=== PATIENT | female | born 1940 | race Caucasian/White ===

== ENCOUNTER 2017-06-28 19:10 | Inpatient (IN) ==
[2017-06-28] MEDS ORDERED: ONDANSETRON 4 MG/2 ML VIAL IV STA (21:28)
[2017-06-28] MEDS ORDERED: MORPHINE 4 MG/1 ML VIAL IV STA (21:28)
[2017-06-28] MEDS ORDERED: ONDANSETRON 4 MG/2 ML VIAL ONE (22:04)
[2017-06-28] MEDS ORDERED: MORPHINE 4 MG/1 ML VIAL ONE (22:04)
[2017-06-28 22:40] LABS: Basophils % 0.3 % (0.0-0.8); Eosinophils # 0.1 10*3/uL (0.0-0.87); Eosinophils % 0.8 % (0.00-10.9); Hematocrit 40.9 VOL% (35.7-47.0); Hemoglobin 14.1 GM/DL (12.0-16.0); Immature Granulocytes % 0.5 %; Immature Granulocytes Absolute 0.07 #; Lymphocytes # 2.1 10*3/uL (1.4-4.0); Lymphocytes % 15.7 % (21.3-54.2); Mean Corpuscular HGB Conc 34.5 GM/DL (32-36); Mean Corpuscular Hemoglobin 32 PG (27-34); Mean Platelet Volume 12.5 FL (9.6-12.0); Monocytes # 0.6 10*3/uL (0.11-0.8); Monocytes % 4.6 % (1.7-12.7); Neutrophils # 10.2 10*3/uL (1.4-7.4); Neutrophils % 78.1 % (38.7-73.9); Platelet Count 110 T/CUMM (130-400); Red Cell Distribution Width 12.9 % (9.3-17.3); White Blood Count 13.1 T/CUMM (4-12)
[2017-06-28 22:46] LABS: Apearance,Urine CLEAR (Clear); Bacteria,Urine Occasional /HPF (Few); Bilirubin,Urine Negative (Negative); Blood, Urine Small mg/dL (Negative); Glucose,Urine (UA) 50 mg/dL (Negative); Ketones,Urine Negative (Negative); Nitrite,Urine Negative (Negative); Protein,Urine 30 MG/DL; RBC,Urine 2 /HPF (0-4); Urine Color Yellow (Yellow); Urine Urobilinogen < 2.0 EU/DL (0.2-1.0); WBC,Urine <1 /HPF (0-6)
[2017-06-28 22:49] LABS: PT Patient Result 10.7 SECS
[2017-06-28 23:01] LABS: Albumin 4.7 G/DL (3.4-5.0); Bilirubin,Total 0.5 MG/DL (0.2-1.0); Calcium 9.5 MG/DL (8.5-10.1); Osmolality,Calculated 274.4 MOS/KG (273-304); Potassium 4.3 MMOL/L (3.5-5.1); Total Protein 8.2 G/DL (6.4-8.3)
[2017-06-29] MEDS ORDERED: MORPHINE 4 MG/1 ML VIAL IV PRN ×2 (00:12→11:42)
[2017-06-29] MEDS ORDERED: MORPHINE 4 MG/1 ML VIAL ONE (00:16)
[2017-06-29] MEDS ORDERED: MORPHINE 4 MG/1 ML VIAL IV STA ×2 (00:30→01:33)
[2017-06-29] MEDS: DEXTROSE 5% NACL 0.9% 1,000 ML IV SCH ×2 (02:12→08:30)
[2017-06-29] MEDS: ONDANSETRON 4 MG/2 ML VIAL IV PRN ×2 (05:05→21:25)
[2017-06-29] MEDS ORDERED: PANTOPRAZOLE 40 MG TABLET PO SCH (09:00)
[2017-06-29] MEDS: DOCUSATE SODIUM 100 MG CAPSULE PO SCH ×2 (09:00→21:23)
[2017-06-29] MEDS ORDERED: ceFAZolin 1,000 MG in SYRINGE 1 EACH IV ONE (10:00)
[2017-06-29] MEDS ORDERED: MAGNESIUM HYDROXIDE SUSP 30 ML UDCUP PO PRN (11:22)
[2017-06-29] MEDS ORDERED: PROMETHAZINE 25 MG/1 ML VIAL IM PRN (11:22)
[2017-06-29] MEDS ORDERED: BISACODYL 10 MG SUPP RECTAL PRN (11:22)
[2017-06-29] MEDS ORDERED: LACTULOSE 20 GM/30 ML UDCUP PO PRN (11:22)
[2017-06-29] MEDS ORDERED: PROPOFOL 200 MG/20 ML VIAL IV ONE (12:05)
[2017-06-29] MEDS ORDERED: fentaNYL 100 MCG/2 ML VIAL ONE (12:05)
[2017-06-29] MEDS ORDERED: SEVOFLURANE 1 UNIT/15 MINUTE INH ONE (12:05)
[2017-06-29] MEDS ORDERED: ONDANSETRON 4 MG/2 ML VIAL ONE (12:06)
[2017-06-29] MEDS ORDERED: ONDANSETRON 4 MG/2 ML VIAL IV PRN (12:38)
[2017-06-29] MEDS ORDERED: MEPERIDINE 25 MG/1 ML VIAL IV PRN (12:38)
[2017-06-29] MEDS ORDERED: HYDROmorphone 2 MG/1 ML VIAL IV PRN (12:38)
[2017-06-29] MEDS: MORPHINE 4 MG/1 ML VIAL IV PRN ×2 (14:17→21:21)
[2017-06-29] MEDS: LISINOPRIL 10 MG TABLET PO SCH (18:42)
[2017-06-29] MEDS: ceFAZolin 1,000 MG in SYRINGE 1 EACH IV SCH (18:42)
[2017-06-29] MEDS: CARVEDILOL 6.25 MG TABLET PO SCH (18:43)
[2017-06-29] MEDS: SIMVASTATIN 40 MG TABLET PO SCH (21:23)
[2017-06-29] MEDS: ASPIRIN EC 81 MG TABLET PO SCH (21:23)
[2017-06-29] MEDS: INSULIN GLARGINE 100 UNIT/ML SUBCUT SCH (21:23)
[2017-06-30] MEDS: ceFAZolin 1,000 MG in SYRINGE 1 EACH IV SCH ×3 (03:41→17:06)
[2017-06-30] MEDS: LACTATED RINGERS 1,000 ML IV SCH ×2 (03:43→10:28)
[2017-06-30] MEDS: DEXTROSE 5% NACL 0.9% 1,000 ML IV SCH ×4 (03:43→21:07)
[2017-06-30] MEDS: MORPHINE 4 MG/1 ML VIAL IV PRN ×4 (04:48→21:07)
[2017-06-30] MEDS: ONDANSETRON 4 MG/2 ML VIAL IV PRN (04:48)
[2017-06-30] MEDS: LEVOTHYROXINE 50 MCG TABLET PO SCH (06:23)
[2017-06-30 06:29] LABS: Basophils % 0.1 % (0.0-0.8); Eosinophils # 0.2 10*3/uL (0.0-0.87); Eosinophils % 2.2 % (0.00-10.9); Hemoglobin 11.4 GM/DL (12.0-16.0); Immature Granulocytes % 0.4 %; Immature Granulocytes Absolute 0.04 #; Lymphocytes # 2.2 10*3/uL (1.4-4.0); Lymphocytes % 24.9 % (21.3-54.2); Mean Corpuscular HGB Conc 34.5 GM/DL (32-36); Mean Corpuscular Hemoglobin 32 PG (27-34); Mean Corpuscular Volume 92.2 FL (87-102); Mean Platelet Volume 12.4 FL (9.6-12.0); Monocytes # 0.9 10*3/uL (0.11-0.8); Monocytes % 9.6 % (1.7-12.7); Neutrophils # 5.6 10*3/uL (1.4-7.4); Neutrophils % 62.8 % (38.7-73.9); Platelet Count 83 T/CUMM (130-400); Red Blood Count 3.58 MC/CUMM (3.8-5.5); Red Cell Distribution Width 12.7 % (9.3-17.3)
[2017-06-30 07:05] LABS: Eosinophils 2 % (0-10); Giant Platelets Few; Hypochromasia 1+; Lymphocytes 33 % (20-55); Platelet Estimate Decreased; Segmented Neutrophils 55 % (50-85); Total Cells Counted 100
[2017-06-30] MEDS ORDERED: GLUCAGON 1 MG VIAL IM PRN ×2 (08:13→08:15)
[2017-06-30] MEDS ORDERED: DEXTROSE 50% 25 GM/50 ML VIAL IV PRN ×2 (08:13→08:15)
[2017-06-30] MEDS: CARVEDILOL 6.25 MG TABLET PO SCH ×2 (09:35→17:05)
[2017-06-30] MEDS: FUROSEMIDE 20 MG TABLET PO SCH (09:37)
[2017-06-30] MEDS: PANTOPRAZOLE 40 MG TABLET PO SCH (09:37)
[2017-06-30] MEDS: DOCUSATE SODIUM 100 MG CAPSULE PO SCH ×2 (10:28→21:05)
[2017-06-30] MEDS: INSULIN REGULAR 100 UNIT/ML SUBCUT SCH ×3 (12:16→21:06)
[2017-06-30] MEDS ORDERED: TUBERCULIN SKIN TEST 0.1 ML SYRINGE INTRADERM ONE (15:33)
[2017-06-30] MEDS: LISINOPRIL 10 MG TABLET PO SCH (18:25)
[2017-06-30] MEDS: ASPIRIN EC 81 MG TABLET PO SCH (21:05)
[2017-06-30] MEDS: SIMVASTATIN 40 MG TABLET PO SCH (21:05)
[2017-06-30] MEDS: INSULIN GLARGINE 100 UNIT/ML SUBCUT SCH (21:06)
[2017-07-01] MEDS: ceFAZolin 1,000 MG in SYRINGE 1 EACH IV SCH ×3 (01:11→18:30)
[2017-07-01] MEDS: DEXTROSE 5% NACL 0.9% 1,000 ML IV SCH ×2 (04:10→15:55)
[2017-07-01] MEDS: MORPHINE 4 MG/1 ML VIAL IV PRN (04:16)
[2017-07-01 04:24] LABS: Basophils % 0.3 % (0.0-0.8); Eosinophils # 0.3 10*3/uL (0.0-0.87); Eosinophils % 2.9 % (0.00-10.9); Hematocrit 31.2 VOL% (35.7-47.0); Hemoglobin 10.9 GM/DL (12.0-16.0); Immature Granulocytes % 0.3 %; Immature Granulocytes Absolute 0.03 #; Lymphocytes # 2.8 10*3/uL (1.4-4.0); Lymphocytes % 30.4 % (21.3-54.2); Mean Corpuscular HGB Conc 34.9 GM/DL (32-36); Mean Corpuscular Hemoglobin 32 PG (27-34); Mean Corpuscular Volume 92.3 FL (87-102); Mean Platelet Volume 13.1 FL (9.6-12.0); Monocytes # 1.1 10*3/uL (0.11-0.8); Monocytes % 11.4 % (1.7-12.7); Neutrophils # 5.1 10*3/uL (1.4-7.4); Neutrophils % 54.7 % (38.7-73.9); Platelet Count 88 T/CUMM (130-400); Red Blood Count 3.38 MC/CUMM (3.8-5.5); Red Cell Distribution Width 12.4 % (9.3-17.3); White Blood Count 9.3 T/CUMM (4-12)
[2017-07-01 05:23] LABS: Giant Platelets Few; Hypochromasia 1+; Ovalocytes Slight; Platelet Estimate Decreased
[2017-07-01] MEDS: LEVOTHYROXINE 50 MCG TABLET PO SCH (06:13)
[2017-07-01] MEDS: LACTATED RINGERS 1,000 ML IV SCH (08:20)
[2017-07-01] MEDS: DOCUSATE SODIUM 100 MG CAPSULE PO SCH ×2 (10:01→20:44)
[2017-07-01] MEDS: INSULIN REGULAR 100 UNIT/ML SUBCUT SCH ×4 (10:01→20:46)
[2017-07-01] MEDS: CARVEDILOL 6.25 MG TABLET PO SCH ×2 (10:01→18:30)
[2017-07-01] MEDS: PANTOPRAZOLE 40 MG TABLET PO SCH (10:02)
[2017-07-01] MEDS: FUROSEMIDE 20 MG TABLET PO SCH (10:02)
[2017-07-01 16:04] LABS: Basophils % 0.2 % (0.0-0.8); Eosinophils # 0.1 10*3/uL (0.0-0.87); Hematocrit 31.4 VOL% (35.7-47.0); Hemoglobin 11.2 GM/DL (12.0-16.0); Immature Granulocytes % 0.6 %; Immature Granulocytes Absolute 0.06 #; Lymphocytes # 1.7 10*3/uL (1.4-4.0); Lymphocytes % 17.5 % (21.3-54.2); Mean Corpuscular HGB Conc 35.7 GM/DL (32-36); Mean Corpuscular Hemoglobin 33 PG (27-34); Mean Corpuscular Volume 91.5 FL (87-102); Mean Platelet Volume 11.8 FL (9.6-12.0); Monocytes % 10.4 % (1.7-12.7); Neutrophils % 70.3 % (38.7-73.9); Platelet Count 98 T/CUMM (130-400); Red Blood Count 3.43 MC/CUMM (3.8-5.5); Red Cell Distribution Width 12.4 % (9.3-17.3)
[2017-07-01 16:29] LABS: Albumin 3.2 G/DL (3.4-5.0); Bilirubin,Total 0.9 MG/DL (0.2-1.0); Calcium 8.4 MG/DL (8.5-10.1); Osmolality,Calculated 261.7 MOS/KG (273-304); Potassium 3.6 MMOL/L (3.5-5.1); Total Protein 6.4 G/DL (6.4-8.3)
[2017-07-01 16:59] LABS: Platelet Estimate Decreased
[2017-07-01 18:23] LABS: Apearance,Urine Clear (Clear); Urine Color Yellow (Yellow)
[2017-07-01 18:24] LABS: Bilirubin,Urine Negative (Negative); Blood, Urine Negative (Negative); Glucose,Urine (UA) 150 mg/dL (Negative); Ketones,Urine Negative (Negative); Nitrite,Urine Negative (Negative); Protein,Urine 30 MG/DL; Urine Specific Gravity 1.015 (1.001-1.035); Urine Urobilinogen 0.2 EU/DL (0.2-1.0)
[2017-07-01] MEDS: LISINOPRIL 10 MG TABLET PO SCH (18:31)
[2017-07-01] MEDS: ASPIRIN EC 81 MG TABLET PO SCH (20:45)
[2017-07-01] MEDS: SIMVASTATIN 40 MG TABLET PO SCH (20:45)
[2017-07-01] MEDS: INSULIN GLARGINE 100 UNIT/ML SUBCUT SCH (20:46)
[2017-07-01] MEDS ORDERED: MAGNESIUM SULF RIDER 2 GM in PREMIX 1 EACH IV ONE (22:30)
[2017-07-01] MEDS ORDERED: FUROSEMIDE 20 MG/2 ML VIAL IV ONE (22:30)
[2017-07-01] MEDS: SODIUM CHLORIDE 0.9% 1,000 ML IV SCH (22:49)
[2017-07-02] MEDS: ceFAZolin 1,000 MG in SYRINGE 1 EACH IV SCH ×3 (02:15→18:08)
[2017-07-02] MEDS: LEVOTHYROXINE 50 MCG TABLET PO SCH (06:17)
[2017-07-02 06:25] LABS: Calcium 8.2 MG/DL (8.5-10.1); Osmolality,Calculated 265.5 MOS/KG (273-304); Potassium 3.5 MMOL/L (3.5-5.1)
[2017-07-02] MEDS: INSULIN REGULAR 100 UNIT/ML SUBCUT SCH ×4 (08:56→20:28)
[2017-07-02] MEDS ORDERED: FUROSEMIDE 20 MG/2 ML VIAL IV SCH (09:00)
[2017-07-02] MEDS: ACETAMINOPHEN 325 MG TABLET PO PRN ×2 (10:27→20:26)
[2017-07-02] MEDS: PANTOPRAZOLE 40 MG TABLET PO SCH (10:28)
[2017-07-02] MEDS: CARVEDILOL 6.25 MG TABLET PO SCH ×2 (10:28→16:38)
[2017-07-02] MEDS: FUROSEMIDE 20 MG TABLET PO SCH (10:28)
[2017-07-02] MEDS: DOCUSATE SODIUM 100 MG CAPSULE PO SCH ×2 (10:28→21:38)
[2017-07-02] MEDS: SODIUM CHLORIDE 0.9% 1,000 ML IV SCH (13:45)
[2017-07-02] MEDS ORDERED: POTASSIUM CHLORIDE 10 MEQ TABLET PO ONE (14:21)
[2017-07-02] MEDS: LISINOPRIL 10 MG TABLET PO SCH (18:08)
[2017-07-02] MEDS: MAGNESIUM HYDROXIDE SUSP 30 ML UDCUP PO SCH ×2 (18:08→20:27)
[2017-07-02] MEDS: SIMVASTATIN 40 MG TABLET PO SCH (20:27)
[2017-07-02] MEDS: ASPIRIN EC 81 MG TABLET PO SCH (20:27)
[2017-07-02] MEDS: INSULIN GLARGINE 100 UNIT/ML SUBCUT SCH (20:28)
[2017-07-03] MEDS: ceFAZolin 1,000 MG in SYRINGE 1 EACH IV SCH ×2 (02:04→10:25)
[2017-07-03] MEDS: SODIUM CHLORIDE 0.9% 1,000 ML IV SCH (02:10)
[2017-07-03] MEDS: ACETAMINOPHEN 325 MG TABLET PO PRN ×2 (02:10→08:35)
[2017-07-03] MEDS ORDERED: POTASSIUM CHLORIDE 20 MEQ TABLET PO PRN (02:43)
[2017-07-03 05:56] LABS: Calcium 7.8 MG/DL (8.5-10.1); Osmolality,Calculated 269.1 MOS/KG (273-304)
[2017-07-03] MEDS: LEVOTHYROXINE 50 MCG TABLET PO SCH (06:01)
[2017-07-03] MEDS: INSULIN REGULAR 100 UNIT/ML SUBCUT SCH ×2 (08:17→11:41)
[2017-07-03] MEDS: CARVEDILOL 6.25 MG TABLET PO SCH (08:35)
[2017-07-03] MEDS: PANTOPRAZOLE 40 MG TABLET PO SCH (08:35)
[2017-07-03] MEDS: FUROSEMIDE 20 MG TABLET PO SCH (08:35)
[2017-07-03] MEDS: DOCUSATE SODIUM 100 MG CAPSULE PO SCH (08:35)
[2017-07-03] MEDS: MAGNESIUM HYDROXIDE SUSP 30 ML UDCUP PO SCH (08:43)
[2017-07-03] MEDS ORDERED: POTASSIUM CHLORIDE 20 MEQ TABLET PO SCH (09:00)
[2017-07-03 11:19] VITALS: BP 116/60
== END 2017-07-03 13:35 | DRG 481 ==
LOC: N.ED 19:10 → N.3E 06-29 00:10 → N.EDINP 06-29 00:12 → N.3E 06-29 00:54
PROVIDERS: ADMIT Family Medicine; ATTEND Family Medicine

== ENCOUNTER 2018-06-30 08:22 | Inpatient (IN) ==
[2018-06-30 09:55] LABS: Basophils # 0.1 10*3/uL (0.0-0.2); Basophils % 0.6 % (0.0-0.8); Eosinophils # 0.3 10*3/uL (0.0-0.87); Eosinophils % 3.1 % (0.00-10.9); Hematocrit 43.2 VOL% (35.7-47.0); Hemoglobin 14.2 GM/DL (12.0-16.0); Immature Granulocytes % 0.6 %; Immature Granulocytes Absolute 0.05 #; Lymphocytes % 22.3 % (21.3-54.2); Mean Corpuscular HGB Conc 32.9 GM/DL (32-36); Mean Corpuscular Volume 96.2 FL (87-102); Monocytes % 6.5 % (1.7-12.7); Neutrophils % 66.9 % (38.7-73.9); Platelet Count 131 T/CUMM (130-400); Red Blood Count 4.49 MC/CUMM (3.8-5.5); Red Cell Distribution Width 12.8 % (9.3-17.3); White Blood Count 9.1 T/CUMM (4-12)
[2018-06-30 10:17] LABS: Calcium 9.1 MG/DL (8.5-10.1); Osmolality,Calculated 280.7 MOS/KG (273-304)
[2018-06-30 10:38] LABS: Apearance,Urine CLEAR (Clear); Bilirubin,Urine Negative (Negative); Blood, Urine Negative (Negative); Glucose,Urine (UA) Negative (Negative); Ketones,Urine 5 mg/dL (Negative); Nitrite,Urine Negative (Negative); Protein,Urine 30 MG/DL; RBC,Urine 1 /HPF (0-4); Urine Color Yellow (Yellow); Urine Specific Gravity 1.013 (1.001-1.035); Urine Urobilinogen < 2.0 EU/DL (0.2-1.0); WBC,Urine 1 /HPF (0-6)
[2018-06-30] MEDS ORDERED: ONDANSETRON 4 MG/2 ML VIAL IV PRN (11:10)
[2018-06-30] MEDS ORDERED: ALUMINUM/MAGNES/SIMETH MAX STR 30 ML UDCUP PO PRN (11:10)
[2018-06-30] MEDS ORDERED: BISACODYL 5 MG TABLET PO PRN (11:10)
[2018-06-30] MEDS ORDERED: HYDROmorphone 2 MG/1 ML VIAL IV PRN ×2 (11:10→12:51)
[2018-06-30] MEDS ORDERED: MAGNESIUM HYDROXIDE SUSP 30 ML UDCUP PO PRN (11:10)
[2018-06-30] MEDS ORDERED: GLUCAGON 1 MG VIAL IM PRN (11:17)
[2018-06-30] MEDS ORDERED: DEXTROSE 50% 25 GM/50 ML SYRINGE IV PRN (11:17)
[2018-06-30] MEDS: SODIUM CHLORIDE 0.9% 1,000 ML IV SCH (12:44)
[2018-06-30] MEDS: INSULIN LISPRO 100 UNIT/ML SUBCUT SCH ×3 (13:47→20:41)
[2018-06-30] MEDS ORDERED: ceFAZolin 2,000 MG in PREMIX 1 EACH IV ONE (14:00)
[2018-06-30] MEDS: CARVEDILOL 6.25 MG TABLET PO SCH (17:25)
[2018-06-30 18:40] LABS: Basophils % 0.2 % (0.0-0.8); Eosinophils % 0.3 % (0.00-10.9); Hematocrit 39.9 VOL% (35.7-47.0); Hemoglobin 12.7 GM/DL (12.0-16.0); Immature Granulocytes % 0.5 %; Immature Granulocytes Absolute 0.05 #; Lymphocytes # 1.8 10*3/uL (1.4-4.0); Lymphocytes % 17.7 % (21.3-54.2); Mean Corpuscular HGB Conc 31.8 GM/DL (32-36); Mean Corpuscular Volume 98.3 FL (87-102); Mean Platelet Volume 11.7 FL (9.6-12.0); Monocytes % 5.3 % (1.7-12.7); Platelet Count 121 T/CUMM (130-400); Red Blood Count 4.06 MC/CUMM (3.8-5.5); Red Cell Distribution Width 12.7 % (9.3-17.3); White Blood Count 9.9 T/CUMM (4-12)
[2018-06-30] MEDS: INSULIN GLARGINE 100 UNIT/ML SUBCUT SCH (20:40)
[2018-06-30] MEDS ORDERED: PROPOFOL 200 MG/20 ML VIAL IV ONE (21:15)
[2018-06-30] MEDS ORDERED: SEVOFLURANE 1 UNIT/15 MINUTE INH ONE (21:15)
[2018-06-30] MEDS ORDERED: DEXAMETHASONE 4 MG/1 ML VIAL ONE (21:16)
[2018-06-30] MEDS ORDERED: fentaNYL 100 MCG/2 ML VIAL ONE (21:16)
[2018-06-30] MEDS ORDERED: ePHEDrine 50 MG/ML AMP ONE (21:16)
[2018-06-30] MEDS ORDERED: ACETAMINOPHEN 1,000 MG/100 ML VIAL IV ONE (21:16)
[2018-06-30] MEDS ORDERED: ONDANSETRON 4 MG/2 ML VIAL ONE (21:16)
[2018-07-01] MEDS: SODIUM CHLORIDE 0.9% 1,000 ML IV SCH ×3 (00:53→21:01)
[2018-07-01] MEDS: SIMVASTATIN 40 MG TABLET PO SCH ×2 (00:54→20:48)
[2018-07-01] MEDS: LISINOPRIL 10 MG TABLET PO SCH ×2 (00:54→18:16)
[2018-07-01 05:01] LABS: Basophils % 0.1 % (0.0-0.8); Hematocrit 33.6 VOL% (35.7-47.0); Hemoglobin 11.1 GM/DL (12.0-16.0); Immature Granulocytes % 0.4 %; Immature Granulocytes Absolute 0.04 #; Lymphocytes # 1.3 10*3/uL (1.4-4.0); Lymphocytes % 11.8 % (21.3-54.2); Mean Corpuscular Volume 96.8 FL (87-102); Mean Platelet Volume 12.4 FL (9.6-12.0); Monocytes % 4.9 % (1.7-12.7); Neutrophils % 82.8 % (38.7-73.9); Platelet Count 99 T/CUMM (130-400); Red Blood Count 3.47 MC/CUMM (3.8-5.5); Red Cell Distribution Width 12.7 % (9.3-17.3); White Blood Count 10.6 T/CUMM (4-12)
[2018-07-01 06:03] LABS: Anisocytosis Slight; Platelet Estimate Decreased
[2018-07-01] MEDS: LEVOTHYROXINE 50 MCG TABLET PO SCH (06:47)
[2018-07-01] MEDS: POTASSIUM CHLORIDE 20 MEQ TABLET PO SCH (09:14)
[2018-07-01] MEDS: CARVEDILOL 6.25 MG TABLET PO SCH ×2 (09:14→16:32)
[2018-07-01] MEDS: INSULIN LISPRO 100 UNIT/ML SUBCUT SCH ×4 (09:15→20:52)
[2018-07-01] MEDS: ENOXAPARIN 30 MG/0.3 ML SYRINGE SUBCUT SCH (09:18)
[2018-07-01] MEDS: INSULIN GLARGINE 100 UNIT/ML SUBCUT SCH (20:48)
[2018-07-02] MEDS: LEVOTHYROXINE 50 MCG TABLET PO SCH (06:06)
[2018-07-02] MEDS: CARVEDILOL 6.25 MG TABLET PO SCH ×2 (09:49→16:57)
[2018-07-02] MEDS: INSULIN LISPRO 100 UNIT/ML SUBCUT SCH ×4 (09:50→21:59)
[2018-07-02] MEDS: ENOXAPARIN 30 MG/0.3 ML SYRINGE SUBCUT SCH (09:50)
[2018-07-02] MEDS: POTASSIUM CHLORIDE 20 MEQ TABLET PO SCH (09:58)
[2018-07-02] MEDS: SODIUM CHLORIDE 0.9% 1,000 ML IV SCH ×3 (10:01→23:21)
[2018-07-02] MEDS: LISINOPRIL 10 MG TABLET PO SCH (18:34)
[2018-07-02] MEDS ORDERED: MELATONIN 3 MG TABLET PO SCH (21:00)
[2018-07-02] MEDS: INSULIN GLARGINE 100 UNIT/ML SUBCUT SCH (21:59)
[2018-07-02] MEDS: SIMVASTATIN 40 MG TABLET PO SCH (22:00)
[2018-07-03 05:28] LABS: Basophils % 0.3 % (0.0-0.8); Eosinophils # 0.3 10*3/uL (0.0-0.87); Hematocrit 28.4 VOL% (35.7-47.0); Hemoglobin 8.9 GM/DL (12.0-16.0); Immature Granulocytes % 0.4 %; Immature Granulocytes Absolute 0.04 #; Lymphocytes # 3.6 10*3/uL (1.4-4.0); Lymphocytes % 34.2 % (21.3-54.2); Mean Corpuscular HGB Conc 31.3 GM/DL (32-36); Mean Platelet Volume 12.6 FL (9.6-12.0); Monocytes % 9.9 % (1.7-12.7); Neutrophils % 52.2 % (38.7-73.9); Platelet Count 92 T/CUMM (130-400); Red Blood Count 2.84 MC/CUMM (3.8-5.5); White Blood Count 10.5 T/CUMM (4-12)
[2018-07-03] MEDS: LEVOTHYROXINE 50 MCG TABLET PO SCH (06:05)
[2018-07-03 06:06] LABS: Anisocytosis 1+; Platelet Estimate Decreased
[2018-07-03] MEDS: INSULIN LISPRO 100 UNIT/ML SUBCUT SCH ×2 (07:39→12:23)
[2018-07-03] MEDS: POTASSIUM CHLORIDE 20 MEQ TABLET PO SCH (08:45)
[2018-07-03] MEDS: ENOXAPARIN 30 MG/0.3 ML SYRINGE SUBCUT SCH (08:46)
[2018-07-03] MEDS: CARVEDILOL 6.25 MG TABLET PO SCH (08:46)
[2018-07-03] MEDS ORDERED: ESCITALOPRAM 10 MG TABLET PO SCH (09:00)
[2018-07-03 11:57] VITALS: BP 173/76
== END 2018-07-03 13:40 | DRG 481 ==
LOC: EDUNIT# → N.ED 08:22 → N.EDINP 11:10 → N.3E 13:05
PROVIDERS: ADMIT Family Medicine; ATTEND Family Medicine

== ENCOUNTER 2018-09-14 21:02 | Observation (INO) ==
[2018-09-14] MEDS ORDERED: ACETAMINOPHEN 500 MG TABLET PO STA (21:32)
[2018-09-14 21:52] LABS: Basophils % 0.3 % (0.0-0.8); Eosinophils # 0.2 10*3/uL (0.0-0.87); Eosinophils % 3.2 % (0.00-10.9); Hematocrit 38.1 VOL% (35.7-47.0); Hemoglobin 11.9 GM/DL (12.0-16.0); Immature Granulocytes % 0.3 %; Immature Granulocytes Absolute 0.02 #; Lymphocytes # 3.2 10*3/uL (1.4-4.0); Lymphocytes % 46.9 % (21.3-54.2); Mean Corpuscular HGB Conc 31.2 GM/DL (32-36); Mean Corpuscular Volume 96.5 FL (87-102); Mean Platelet Volume 12.2 FL (9.6-12.0); Monocytes % 9.4 % (1.7-12.7); Neutrophils % 39.9 % (38.7-73.9); Platelet Count 124 T/CUMM (130-400); Red Blood Count 3.95 MC/CUMM (3.8-5.5); Red Cell Distribution Width 13.5 % (9.3-17.3); White Blood Count 6.9 T/CUMM (4-12)
[2018-09-14 22:11] LABS: Alanine Aminotransferase 26 U/L (13-56); Albumin 3.3 G/DL (3.4-5.0); Alkaline Phosphatase 78 U/L (45-117); Aspartate Amino Transferase 19 U/L (0-37); Bilirubin,Total < 0.39 MG/DL (0.2-1.0); Blood Urea Nitrogen 33 MG/DL (7-18); Calcium 8.2 MG/DL (8.5-10.1); Glucose 228 MG/DL (74-106); Osmolality,Calculated 290.5 MOS/KG (273-304)
[2018-09-14 23:20] LABS: Apearance,Urine CLEAR (Clear); Bacteria,Urine Many /HPF (Few); Bilirubin,Urine Negative (Negative); Blood, Urine Negative (Negative); Glucose,Urine (UA) >=500 mg/dL (Negative); Hyaline Casts,Urine 3 /LPF (0-3); Ketones,Urine Negative (Negative); Mucus,Urine Occasional /LPF (Occasional); Nitrite,Urine Positive (Negative); Protein,Urine Negative; Squamous Epithelial Cell,Urine Occasional /HPF (0-10); Urine Color Yellow (Yellow); Urine Specific Gravity 1.017 (1.001-1.035); Urine Urobilinogen < 2.0 EU/DL (0.2-1.0); WBC,Urine 66 /HPF (0-6)
[2018-09-15] MEDS ORDERED: cefTRIAXone 1,000 MG in SODIUM CHLORIDE 0.9% 100 ML IV STA (00:01)
[2018-09-15] MEDS ORDERED: ACETAMINOPHEN 325 MG TABLET PO PRN (00:50)
[2018-09-15] MEDS ORDERED: ONDANSETRON 4 MG/2 ML VIAL IV PRN (00:50)
[2018-09-15] MEDS ORDERED: ALUMINUM/MAGNES/SIMETH MAX STR 30 ML UDCUP PO PRN (09:55)
[2018-09-15] MEDS ORDERED: BISACODYL 5 MG TABLET PO PRN (09:55)
[2018-09-15] MEDS: cefTRIAXone 1,000 MG in SYRINGE 1 EACH IV SCH (10:32)
[2018-09-15] MEDS: ESCITALOPRAM 10 MG TABLET PO SCH (10:32)
[2018-09-15] MEDS: LISINOPRIL 10 MG TABLET PO SCH (17:59)
[2018-09-15] MEDS: MELATONIN 3 MG TABLET PO SCH (20:58)
[2018-09-15] MEDS: OLANZapine 2.5 MG TABLET PO SCH (20:58)
[2018-09-15] MEDS: SIMVASTATIN 40 MG TABLET PO SCH (20:58)
[2018-09-15] MEDS: CARVEDILOL 6.25 MG TABLET PO SCH (20:58)
[2018-09-15] MEDS: INSULIN REGULAR 100 UNIT/ML SUBCUT SCH (21:34)
[2018-09-15] MEDS: INSULIN GLARGINE 100 UNIT/ML SUBCUT SCH (21:49)
[2018-09-16 05:19] LABS: Basophils # 0.1 10*3/uL (0.0-0.2); Basophils % 0.8 % (0.0-0.8); Eosinophils # 0.6 10*3/uL (0.0-0.87); Eosinophils % 9.4 % (0.00-10.9); Hematocrit 37.1 VOL% (35.7-47.0); Hemoglobin 11.7 GM/DL (12.0-16.0); Immature Granulocytes % 0.3 %; Immature Granulocytes Absolute 0.02 #; Lymphocytes % 47.3 % (21.3-54.2); Mean Corpuscular HGB Conc 31.5 GM/DL (32-36); Mean Corpuscular Volume 96.9 FL (87-102); Mean Platelet Volume 12.8 FL (9.6-12.0); Monocytes % 8.8 % (1.7-12.7); Neutrophils % 33.4 % (38.7-73.9); Platelet Count 124 T/CUMM (130-400); Red Blood Count 3.83 MC/CUMM (3.8-5.5); Red Cell Distribution Width 13.7 % (9.3-17.3); White Blood Count 6.4 T/CUMM (4-12)
[2018-09-16 05:46] LABS: Albumin 3.1 G/DL (3.4-5.0); Bilirubin,Total 0.8 MG/DL (0.2-1.0); Calcium 8.9 MG/DL (8.5-10.1); Osmolality,Calculated 293.7 MOS/KG (273-304); Risk Ratio 2.39; Thyroid Stimulating Hormone 2.53 uIU/ml (0.358-3.74); Total Protein 6.6 G/DL (6.4-8.3); VLDL CHOLESTEROL 14.6 MG/DL
[2018-09-16 05:59] LABS: Eosinophils 8 % (0-10); Lymphocytes 48 % (20-55); Segmented Neutrophils 33 % (50-85); Total Cells Counted 100
[2018-09-16 06:01] LABS: Hypochromasia Slight; Ovalocytes 1+; Platelet Estimate Adequate; Reactive Lymphocytes 1+
[2018-09-16] MEDS: LEVOTHYROXINE 50 MCG TABLET PO SCH (06:20)
[2018-09-16] MEDS: CARVEDILOL 6.25 MG TABLET PO SCH ×2 (08:38→21:32)
[2018-09-16] MEDS: CHOLECALCIFEROL 5,000 UNIT TABLET PO SCH (08:38)
[2018-09-16] MEDS: POTASSIUM CHLORIDE 20 MEQ TABLET PO SCH (08:38)
[2018-09-16] MEDS: INSULIN REGULAR 100 UNIT/ML SUBCUT SCH ×2 (08:42→21:06)
[2018-09-16] MEDS: cefTRIAXone 1,000 MG in SYRINGE 1 EACH IV SCH (10:29)
[2018-09-16] MEDS: ESCITALOPRAM 10 MG TABLET PO SCH (10:30)
[2018-09-16] MEDS: LISINOPRIL 10 MG TABLET PO SCH (16:05)
[2018-09-16] MEDS: INSULIN GLARGINE 100 UNIT/ML SUBCUT SCH (21:33)
[2018-09-16] MEDS: OLANZapine 2.5 MG TABLET PO SCH (21:33)
[2018-09-16] MEDS: MELATONIN 3 MG TABLET PO SCH (21:33)
[2018-09-16] MEDS: SIMVASTATIN 40 MG TABLET PO SCH (21:33)
[2018-09-17 05:57] LABS: Basophils % 0.4 % (0.0-0.8); Eosinophils # 0.6 10*3/uL (0.0-0.87); Eosinophils % 7.2 % (0.00-10.9); Hematocrit 37.6 VOL% (35.7-47.0); Immature Granulocytes % 0.1 %; Immature Granulocytes Absolute 0.01 #; Lymphocytes # 3.8 10*3/uL (1.4-4.0); Lymphocytes % 49.4 % (21.3-54.2); Mean Corpuscular HGB Conc 31.9 GM/DL (32-36); Mean Corpuscular Volume 95.4 FL (87-102); Mean Platelet Volume 12.6 FL (9.6-12.0); Monocytes % 7.3 % (1.7-12.7); Neutrophils % 35.6 % (38.7-73.9); Platelet Count 127 T/CUMM (130-400); Red Blood Count 3.94 MC/CUMM (3.8-5.5); Red Cell Distribution Width 13.3 % (9.3-17.3); White Blood Count 7.6 T/CUMM (4-12)
[2018-09-17 06:31] LABS: Eosinophils 6 % (0-10); Lymphocytes 50 % (20-55); Segmented Neutrophils 41 % (50-85); Total Cells Counted 100
[2018-09-17 06:32] LABS: Hypochromasia 1+; Platelet Estimate Normal
[2018-09-17 08:48] LABS: Calcium 8.9 MG/DL (8.5-10.1); Osmolality,Calculated 286.7 MOS/KG (273-304)
[2018-09-17] MEDS: ESCITALOPRAM 10 MG TABLET PO SCH (10:21)
[2018-09-17] MEDS: POTASSIUM CHLORIDE 20 MEQ TABLET PO SCH (10:22)
[2018-09-17] MEDS: cefTRIAXone 1,000 MG in SYRINGE 1 EACH IV SCH (10:22)
[2018-09-17] MEDS: INSULIN REGULAR 100 UNIT/ML SUBCUT SCH (10:22)
[2018-09-17] MEDS: LEVOTHYROXINE 50 MCG TABLET PO SCH (10:22)
[2018-09-17] MEDS: CARVEDILOL 6.25 MG TABLET PO SCH (10:22)
[2018-09-17] MEDS: CHOLECALCIFEROL 5,000 UNIT TABLET PO SCH (10:22)
[2018-09-17 11:36] VITALS: BP 131/57
== END 2018-09-17 14:30 ==
LOC: EDBD → EDUNIT# → N.ED 21:02 → N.EDINP 21:02 → N.2E 09-15 00:34
PROVIDERS: ADMIT Family Medicine; ATTEND Family Medicine

== ENCOUNTER 2018-11-15 21:24 | Observation (INO) ==
[2018-11-15 22:33] LABS: Basophils % 0.5 % (0.0-0.8); Eosinophils # 0.4 10*3/uL (0.0-0.87); Eosinophils % 5.9 % (0.00-10.9); Hematocrit 39.9 VOL% (35.7-47.0); Hemoglobin 12.7 GM/DL (12.0-16.0); Immature Granulocytes % 0.4 %; Immature Granulocytes Absolute 0.03 #; Lymphocytes # 2.5 10*3/uL (1.4-4.0); Lymphocytes % 33.9 % (21.3-54.2); Mean Corpuscular HGB Conc 31.8 GM/DL (32-36); Mean Platelet Volume 12.2 FL (9.6-12.0); Monocytes % 7.8 % (1.7-12.7); Neutrophils % 51.5 % (38.7-73.9); Platelet Count 127 T/CUMM (130-400); Red Cell Distribution Width 13.2 % (9.3-17.3); White Blood Count 7.3 T/CUMM (4-12)
[2018-11-15 23:01] LABS: Alanine Aminotransferase 21 U/L (13-56); Albumin 3.4 G/DL (3.4-5.0); Alkaline Phosphatase 81 U/L (45-117); Aspartate Amino Transferase 20 U/L (0-37); Bilirubin,Total < 0.39 MG/DL (0.2-1.0); Blood Urea Nitrogen 23 MG/DL (7-18); Calcium 8.8 MG/DL (8.5-10.1); Glucose 186 MG/DL (74-106); Osmolality,Calculated 289.3 MOS/KG (273-304); Total Protein 7.4 G/DL (6.4-8.3)
[2018-11-16] MEDS ORDERED: VANCOMYCIN INJ 1,000 MG in SODIUM CHLORIDE 0.9% 250 ML IV STA (01:09)
[2018-11-16] MEDS ORDERED: CEFEPIME 2,000 MG in SODIUM CHLORIDE 0.9% 100 ML IV STA ×2 (01:09→01:12)
[2018-11-16] MEDS ORDERED: ONDANSETRON 4 MG/2 ML VIAL IV PRN (01:16)
[2018-11-16] MEDS ORDERED: ACETAMINOPHEN 325 MG TABLET PO PRN (01:16)
[2018-11-16] MEDS ORDERED: GLUCAGON 1 MG VIAL IM PRN (01:16)
[2018-11-16] MEDS ORDERED: DEXTROSE 50% 25 GM/50 ML VIAL IV PRN (01:16)
[2018-11-16 02:24] LABS: VBG Base Excess 2.9 MEQ/L (0-4); VBG HCO3 26.9 MEQ/L (24-28); VBG Oxygen Saturation 93.4 %; VBG PCO2 54.9 MMHG (41-51); VBG PH 7.344; VBG PO2 69.6 MMHG (17-40)
[2018-11-16] MEDS ORDERED: ENOXAPARIN 30 MG/0.3 ML SYRINGE SUBCUT STA (02:28)
[2018-11-16] MEDS: ENOXAPARIN 100 MG/ML SYRINGE SUBCUT SCH ×2 (04:40→16:21)
[2018-11-16] MEDS ORDERED: MAGNESIUM HYDROXIDE SUSP 30 ML UDCUP PO PRN (07:37)
[2018-11-16] MEDS ORDERED: BISACODYL 5 MG TABLET PO PRN (07:37)
[2018-11-16] MEDS ORDERED: ALUMINUM/MAGNES/SIMETH MAX STR 30 ML UDCUP PO PRN (07:37)
[2018-11-16] MEDS ORDERED: POTASSIUM CHLORIDE 20 MEQ TABLET PO SCH (09:00)
[2018-11-16] MEDS ORDERED: PANTOPRAZOLE 40 MG TABLET PO SCH (09:00)
[2018-11-16] MEDS ORDERED: INSULIN REGULAR 100 UNIT/ML SUBCUT SCH (09:00)
[2018-11-16] MEDS ORDERED: CARVEDILOL 6.25 MG TABLET PO SCH (09:00)
[2018-11-16] MEDS ORDERED: DOCUSATE SODIUM 100 MG CAPSULE PO SCH (09:00)
[2018-11-16] MEDS ORDERED: ESCITALOPRAM 10 MG TABLET PO SCH (10:00)
[2018-11-16 14:35] LABS: Apearance,Urine CLEAR (Clear); Bilirubin,Urine Negative (Negative); Blood, Urine Negative (Negative); Glucose,Urine (UA) Negative (Negative); Ketones,Urine Negative (Negative); Mucus,Urine Occasional /LPF (Occasional); Nitrite,Urine Negative (Negative); Protein,Urine Negative; RBC,Urine 1 /HPF (0-4); Squamous Epithelial Cell,Urine Occasional /HPF (0-10); Urine Color Yellow (Yellow); Urine Specific Gravity 1.012 (1.001-1.035); Urine Urobilinogen < 2.0 EU/DL (0.2-1.0); WBC,Urine <1 /HPF (0-6)
[2018-11-16 16:35] VITALS: BP 125/73
[2018-11-16] MEDS ORDERED: LISINOPRIL 10 MG TABLET PO SCH (17:00)
[2018-11-16] MEDS ORDERED: OLANZapine 2.5 MG TABLET PO SCH (21:00)
[2018-11-16] MEDS ORDERED: INSULIN GLARGINE 100 UNIT/ML SUBCUT SCH (21:00)
[2018-11-17] MEDS ORDERED: LEVOTHYROXINE 50 MCG TABLET PO SCH (07:00)
== END 2018-11-16 16:44 ==
LOC: EDUNIT# → EDBD → N.ED 21:24 → N.EDINP 21:24 → N.TELES 11-16 01:30
PROVIDERS: ADMIT Family Medicine; ATTEND Family Medicine